=== PATIENT | female | born 1975 | race Caucasian/White ===

== ENCOUNTER 2016-07-03 23:18 | Emergency (ER) | payer BC ==
--- NOTE | 2016-07-04 00:13 | DIAGNOSTIC IMAGING REPORT ---
PROCEDURE: XR KNEE 4 VIEWS - LEFT INDICATION: TRAUMA/INJURY TECHNIQUE: Four views. COMPARISON: None. FINDINGS: Large laceration anterior to the patella with multiple small subcutaneous foreign bodies. No fracture or effusion. IMPRESSION: 1. Laceration anterior to the patella with multiple subcutaneous foreign bodies
--- NOTE | 2016-07-04 00:15 | DIAGNOSTIC IMAGING REPORT ---
PROCEDURE: XR ANKLE 3 OR 4 VIEWS - LEFT INDICATION: TRAUMA/INJURY TECHNIQUE: Four views. COMPARISON: None. FINDINGS: Curvilinear calcification lateral aspect of the calcaneus suggestive of an avulsion fracture. Normal ankle mortise. Soft tissue swelling laterally. IMPRESSION: 1. Avulsion fracture lateral aspect of the calcaneus
--- NOTE | 2016-07-04 01:55 | ED ORDER SUMMARY ---
..... Patient: CARLI ARDON OrderSheet [facility] VisitID: [id number] [place] [address] 40y, F Registration Date/Time: 07/03/2016 ORDER SHEET Weight: 83.0 kg Allergies: Sulfa Antibiotics GENERAL ORDERS: Ankle 3 or 4V Left Urgent (23:38 07/03/2016 Ana CARR) (0:00 RFay) Knee 4V Left Urgent (23:38 07/03/2016 Ana CARR) (0:00 RFay) Crutches (02:22 07/04/2016 Ramon Loyola verbal order read back to Ana CARR) (2:22 Ramon R.N.) MEDICATION ORDERS: Tdap IM 0.5 mL (per protocol) (23:39 07/03/2016 Ana CARR) (0:16 EBonham) Oxycodone-APAP PO 10/650 mg (NOW) (00:07 07/04/2016 Ana CARR) (Ack 0:17 EBonham) (Hold 2:22 Ramon Loyola) IV FLUIDS: ORDER SHEET NOTES: [Electronically signed by Kurt Agustin R.N. (02:07/04/2016)] [Electronically signed by Joshua Spivey MD (00:27 07/06/2016)] [Electronically locked/signed by Kurt Agustin R.N. (02:07/04/2016)]
--- NOTE | 2016-07-04 01:55 | ED NURSING NOTES ---
Clinical Report - Nurses [facility] [address] [place] [address] 07/03/2016 23:19 Patient: CARLI ARDON TRIAGE Triage time 2320. Acuity: LEVEL 3. Chief Complaint: INJURY TO RIGHT and LEFT KNEE and LEFT ANKLE. Alert. No acute distress. --23:29 Julita Brooke 23:25 07/03/16. BP: 118/84. HR: 102. RR: 16. O2 saturation: 97%. Temp: 98.2 F. Pain level now 0/10. --23:29 Julita Brooke. Weight: 83 kg. Height/Length: 70 inches. BMI: 26.3. --23:24 Julita Brooke. Medications None. --23:26 Julita Brooke. Allergies Sulfa Antibiotics. --23:26 Julita Brooke. History Arrived by EMS. Historian: EMS and patient. Accompanied by family. ( Pt fell after walking home from bar drinking heavy, rolled left ankle on curb, fell, hitting knees, denies head injuy). This occurred just prior to arrival. She sustained a laceration. Mechanism of injury: sustained a twisting injury and fell. She has had trouble walking. Treatment BUSINESS MGR: Ice. PAST MEDICAL HX: Tetanus status: unknown. SOCIAL HX: Light tobacco smoker (cigarette)- less than 1/2 a pack per day. Regular alcohol use. --23:29 Julita Brooke. Interventions To treatment room. --23:29 Julita Brooke. PHYSICAL ASSESSMENT To room via stretcher. GENERAL / NEURO / PSYCH: Oriented X 4. Alert. Appears in no acute distress. EXTREMITIES: Limited ROM present. Capillary refill is less than 2 seconds in the extremities. Extremity pulses are within normal limits. Pain with weight bearing. She was unable to bear weight. Neuro-vascular status intact to the extremity. Right knee: tenderness, erythema and multiple large and superficial abrasions. Left knee: tenderness and deep laceration greater than 5.0 cm with controlled bleeding. Left ankle: tenderness, swelling, erythema, ecchymosis and deformity. Limited ROM secondary to pain. SKIN: Skin intact. Skin is warm and dry. --23:31 Julita Brooke. NURSING PROGRESS NOTES Cold pack applied. Reassurance given. Call light placed in reach. Side rails up x 2. Bed placed in lowest position. Brakes of bed on. Patient ready for evaluation- chart flagged. --23:31 Julita Brooke 00:16 07/04/2016 TDAP IM 0.5 mL given. (Lot#: [id number], expiration date: 03/03/2018, Occupational Health Physician: sanofi pasteur). Given in the right deltoid. Allergies verified and confirmed 5 rights. Vaccine information statement provided to the patient. --00:16 Julita Brooke WOUND REPAIR: Wound repair performed by ED physician (Dr. Jamison). Assisted by one nurse. The wound is located on the left knee. Preparation: with 1% lidocaine. Wound cleansed per physician with sterile saline. Procedure: wound repaired with sutures (3 suture packs). Post-procedure: she was stable, no complications, bleeding controlled, neuro-vascular status intact distal to wound, dressing applied, splint applied and wound care instructions given. Total time of assist / procedure: 30 minutes. --01:48 Kurt Agustin R.N. 02:00. Stirrup air lower extremity splint applied to left ankle by nurse. Distal pulses intact, sensation intact and motor within normal limits. Immobilizer applied to the left knee by nurse; distal pulses intact, sensation intact and motor function within normal limits. Patient fit with new crutches. Crutch training performed by nurse; the patient demonstrated proper use. --02:22 Kurt Agustin R.N. 02:22 07/04/2016 TDAP IM Response: no adverse reaction. --02:22 Kurt Agustin R.N. DISPOSITION / DISCHARGE Departure time: 02:21. Condition at departure: stable. The goals identified in the patient's plan of care were met. No learning barriers present. Discharge instructions provided and reviewed with the patient. Reviewed medication(s) side effects, precautions, dosing and course information. Prescription(s) given to the patient (Carli verbalizes importance of finishing all prescribed antibiotics. She verbalizes importance of not driving and/or operating heavy machinery while taking narcotics. She verbalizes safe, proper use of prescribed narcotics for optimal pain management at home.). Activity restrictions (minimal use of injured extremity and rest) reviewed. Work note given. Patient verbalized understanding. Written instructions provided in Urdu. ( Carli verbalizes understanding of all d/c instructions including need to f/u with PCP for wound eval. She verbalizes importance of keep wound clean/dry and leaving splint in place. She verbalizes RICE care for knee and ankle. She has no questions and voices no concerns at this time.). The patient was discharged by the physician. She was discharged home and unaccompanied at time of discharge. She left the Emergency Department on crutches and via taxi. BRANDON COMA SCORE: [place] Coma Scale: 15- eyes open spontaneously (4); best verbal response- oriented x 4 (5); best motor response- obeys commands (6). --02:21 Kurt Agustin R.N. 02:19 07/04/16. BP: 115/69 (regular adult cuff) taken on the left arm, via an automated monitor, while sitting. HR: 92 (normal rate). RR: 16 (regular, unlabored and normal). O2 saturation: 100% on room air. Temp: deferred. Pain level now: 7/10. Additional comments: Does not want pain medicine. . --02:21 Kurt Agustin R.N. Locked/Released at 07/04/2016 2:23 by Kurt Agustin R.N.
--- NOTE | 2016-07-04 01:55 | ED CLINICAL REPORT ---
Clinical Report - Physicians/Mid Levels [facility] [address] [place] [address] 07/03/2016 23:19 Patient: CARLI ARDON Time Seen: 23:58 Jul 03 2016. Arrived- By ambulance. Historian- patient and EMS personnel. CPT: ER phys charges level 4 plus (#[id number]). 7.6-12.5 ch layer clsr-neck, hands (#[id number]). HISTORY OF PRESENT ILLNESS Chief Complaint: Injury to left knee. The injury happened just prior to arrival. ( patient was walking on the street after leaving a bar and fell hitting her knee on the pavement. Her ex-boyfriend called for medics to pick her up and bring her to the hospital.). Fell while standing and landed on a concrete surface; tripped. Patient is experiencing moderate pain. No other injury. REVIEW OF SYSTEMS The patient sustained a laceration. She complains of pain on weight bearing. She has had swelling. No tingling, weakness, numbness or suspected foreign body. All systems otherwise negative, except as recorded above. PAST HISTORY See nurses notes. Tetanus immunization status is unknown. Medications: None. Allergies: Sulfa Antibiotics. SOCIAL HISTORY Heavy tobacco smoker (cigarette)- less than 1 pack per day. Regular alcohol use. ADDITIONAL NOTES The nursing notes have been reviewed. PHYSICAL EXAM Vital Signs: 07/03/2016 23:25 BP: 118/84. HR: 102. RR: 16. O2 saturation: 97%. Temp: 98.2 F. Appearance: Alert. Appears to be in pain. Patient in mild distress. Head: Head atraumatic. Eyes: Eyes normal inspection. ENT: Pharynx normal. Neck: Normal inspection. Neck supple. C-spine non-tender. CVS: Normal heart rate and rhythm. Heart sounds normal. Pulses normal. Respiratory: No respiratory distress. Breath sounds normal. Chest nontender. Abdomen: Soft and nontender. Bowel sounds normal. Back: Normal inspection. ROM normal. Skin: Skin warm. Normal skin color. Extremities: Left knee: severe tenderness, mild swelling and deep laceration greater than 5.0 cm located in the infrapatellar area. SEE LACERATION PROCEDURE NOTE. Limited ROM secondary to pain. Neurovascular intact distally. No ligamentous laxity present. No joint effusion. No deformity. Left ankle: moderate tenderness and swelling, medium sized ecchymosis and mild deformity consistent with a lateral malleolus fracture localized to the lateral ligaments and malleolus. Limited ROM secondary to pain (diminished inversion and eversion). Neurovascular intact distally. No ligamentous laxity present. No joint effusion. Extremities otherwise negative. Neuro, Vascular and Tendons: Vascular status intact. Sensation intact. Motor intact. Gait: Limping gait. Neuro: Oriented X 3. No motor deficit. No sensory deficit. Reflexes normal. LABS, X-RAYS, AND EKG Lt Knee X-ray: No fracture. Normal alignment. (no fx, minimal effusion, sub q gravel multiple FB with large laceration). Views: AP, lateral and oblique. Technique: good. The X-rays were independently viewed by me and interpreted contemporaneously by me. Lt Ankle X-ray: (no apparent fx. Soft tissue calcific strand on one view only(oblique) Question avulsion vs other.). Views: 3 view ankle series. Technique: good. The X-rays were independently viewed by me and interpreted contemporaneously by me. PROGRESS AND PROCEDURES Laceration Repair: Location: left knee. Length: 12.7 cm. Complexity: intermediate (single layer closure with heavy contamination and requiring extensive irrigation and cleaning). Wound depth/shape- linear and flap-like. Contamination present. Contused tissue present. Distal neuro/vascular/tendon status normal. Anesthesia provided using 0.50% Marcaine. Prepped with Hibiclens. Wound prep- [place] drain placed. Wound explored, cleansed, irrigated and examined to the base in bloodless field extensively with normal saline. Debrided. Foreign material removed. Closure of skin: interrupted 4-0 (15 sutures). Post-procedure: she is stable and there are no complications. Bleeding is controlled and neuro-vascular status is intact distal to the wound. Dressing applied. Tetanus immunization given. Estimated blood loss: 2 mL. Splint Application: Knee immobilizer and air splint applied to left ankle and knee. Splint applied by nurse with direct supervision by me. Reassessed extremity following splint application. Neurovascular intact. Follow-up recommended within 2 weeks. Fitted for crutches by the tech. Course of Care: percocet 2 po Patient is stable. X-ray diagnosis of left ankle not clear on discharge. Radiologist read ankle as positive for a small avulsion fracture of the calcaneus. The patient was notified by nursing staff by phone. Treament is the same other than no weight bearing until released. Patient/family counseled. Disposition: Discharged. Condition: stable and improved. CLINICAL IMPRESSION Single deep laceration to the left knee. Complicated repair. No foreign body present. Sprain of the talofibular ligament of the left ankle. Fall on same level by tripping. Single contusion to the left knee. Small avulsion fracture of the left calcaneus. INSTRUCTIONS Apply ice for 15-20 minutes three times a day for one days. Use crutches as needed. Wear knee immobilizer until released. Wear air splint until better. Protect wound and keep wound area clean. (Have drain removed in 3 days.). Change dressing twice daily. Keep wounds dry. You may wash wounds briefly, then dry. Apply neosporin twice daily. Sutures should be removed in fourteen days. Elevate affected areas above chest level. You may walk and bear weight as tolerated. Warnings: TETANUS: You were given a tetanus shot during your visit. Make a note for future reference. GENERAL WARNINGS: Return or contact your physician immediately if your condition worsens or changes unexpectedly, if not improving as expected, or if other problems arise. Prescription Medications: Hydrocodone/APAP 5mg/325mg: take 1 to 2 orally every 6 hours as needed for pain. Dispense fifteen (15). No refills. Augmentin 875 mg: take 1 tablet orally every 12 hours for 7 days. Dispense fourteen (14). No refills. Substitution is permissible. Follow-up: Follow up with your doctor in three days. Call for an appointment. Understanding of the discharge instructions verbalized by patient. (Electronically signed by Joshua Spivey MD 07/06/2016 0:27)
--- NOTE | 2016-07-04 01:55 | ED NURSING NOTES ---
Clinical Report - Nurses [facility] [address] [place] [address] 07/03/2016 23:19 Patient: CARLI ARDON TRIAGE Triage time 2320. Acuity: LEVEL 3. Chief Complaint: INJURY TO RIGHT and LEFT KNEE and LEFT ANKLE. Alert. No acute distress. --23:29 Julita Brooke 23:25 07/03/16. BP: 118/84. HR: 102. RR: 16. O2 saturation: 97%. Temp: 98.2 F. Pain level now 0/10. --23:29 Julita Brooke. Weight: 83 kg. Height/Length: 70 inches. BMI: 26.3. --23:24 Julita Brooke. Medications None. --23:26 Julita Brooke. Allergies Sulfa Antibiotics. --23:26 Julita Brooke. History Arrived by EMS. Historian: EMS and patient. Accompanied by family. ( Pt fell after walking home from bar drinking heavy, rolled left ankle on curb, fell, hitting knees, denies head injuy). This occurred just prior to arrival. She sustained a laceration. Mechanism of injury: sustained a twisting injury and fell. She has had trouble walking. Treatment BEEF CATTLE GRAZIER: Ice. PAST MEDICAL HX: Tetanus status: unknown. SOCIAL HX: Light tobacco smoker (cigarette)- less than 1/2 a pack per day. Regular alcohol use. --23:29 Julita Brooke. Interventions To treatment room. --23:29 Julita Brooke. PHYSICAL ASSESSMENT To room via stretcher. GENERAL / NEURO / PSYCH: Oriented X 4. Alert. Appears in no acute distress. EXTREMITIES: Limited ROM present. Capillary refill is less than 2 seconds in the extremities. Extremity pulses are within normal limits. Pain with weight bearing. She was unable to bear weight. Neuro-vascular status intact to the extremity. Right knee: tenderness, erythema and multiple large and superficial abrasions. Left knee: tenderness and deep laceration greater than 5.0 cm with controlled bleeding. Left ankle: tenderness, swelling, erythema, ecchymosis and deformity. Limited ROM secondary to pain. SKIN: Skin intact. Skin is warm and dry. --23:31 Julita Brooke. NURSING PROGRESS NOTES Cold pack applied. Reassurance given. Call light placed in reach. Side rails up x 2. Bed placed in lowest position. Brakes of bed on. Patient ready for evaluation- chart flagged. --23:31 Julita Brooke 00:16 07/04/2016 TDAP IM 0.5 mL given. (Lot#: [id number], expiration date: 03/03/2018, Sales Donor Recruitment Representative: sanofi pasteur). Given in the right deltoid. Allergies verified and confirmed 5 rights. Vaccine information statement provided to the patient. --00:16 Julita Brooke WOUND REPAIR: Wound repair performed by ED physician (Dr. Jamison). Assisted by one nurse. The wound is located on the left knee. Preparation: with 1% lidocaine. Wound cleansed per physician with sterile saline. Procedure: wound repaired with sutures (3 suture packs). Post-procedure: she was stable, no complications, bleeding controlled, neuro-vascular status intact distal to wound, dressing applied, splint applied and wound care instructions given. Total time of assist / procedure: 30 minutes. --01:48 Kurt Agustin R.N. 02:00. Stirrup air lower extremity splint applied to left ankle by nurse. Distal pulses intact, sensation intact and motor within normal limits. Immobilizer applied to the left knee by nurse; distal pulses intact, sensation intact and motor function within normal limits. Patient fit with new crutches. Crutch training performed by nurse; the patient demonstrated proper use. --02:22 Kurt Agustin R.N. 02:22 07/04/2016 TDAP IM Response: no adverse reaction. --02:22 Kurt Agustin R.N. DISPOSITION / DISCHARGE Departure time: 02:21. Condition at departure: stable. The goals identified in the patient's plan of care were met. No learning barriers present. Discharge instructions provided and reviewed with the patient. Reviewed medication(s) side effects, precautions, dosing and course information. Prescription(s) given to the patient (Carli verbalizes importance of finishing all prescribed antibiotics. She verbalizes importance of not driving and/or operating heavy machinery while taking narcotics. She verbalizes safe, proper use of prescribed narcotics for optimal pain management at home.). Activity restrictions (minimal use of injured extremity and rest) reviewed. Work note given. Patient verbalized understanding. Written instructions provided in Arabic. ( Carli verbalizes understanding of all d/c instructions including need to f/u with PCP for wound eval. She verbalizes importance of keep wound clean/dry and leaving splint in place. She verbalizes RICE care for knee and ankle. She has no questions and voices no concerns at this time.). The patient was discharged by the physician. She was discharged home and unaccompanied at time of discharge. She left the Emergency Department on crutches and via taxi. BRANDON COMA SCORE: [place] Coma Scale: 15- eyes open spontaneously (4); best verbal response- oriented x 4 (5); best motor response- obeys commands (6). --02:21 Kurt Agustin R.N. 02:19 07/04/16. BP: 115/69 (regular adult cuff) taken on the left arm, via an automated monitor, while sitting. HR: 92 (normal rate). RR: 16 (regular, unlabored and normal). O2 saturation: 100% on room air. Temp: deferred. Pain level now: 7/10. Additional comments: Does not want pain medicine. . --02:21 Kurt Agustin R.N. Locked/Released at 07/04/2016 2:23 by Kurt Agustin R.N.
--- NOTE | 2016-07-04 01:55 | ED ORDER SUMMARY ---
..... Patient: CARLI ARDON OrderSheet [facility] VisitID: [id number] [place] [address] 40y, F Registration Date/Time: 07/03/2016 ORDER SHEET Weight: 83.0 kg Allergies: Sulfa Antibiotics GENERAL ORDERS: Ankle 3 or 4V Left Urgent (23:38 07/03/2016 Ana CARR) (0:00 RFay) Knee 4V Left Urgent (23:38 07/03/2016 Ana CARR) (0:00 RFay) Crutches (02:22 07/04/2016 Ramon Loyola verbal order read back to Ana CARR) (2:22 Ramon R.N.) MEDICATION ORDERS: Tdap IM 0.5 mL (per protocol) (23:39 07/03/2016 Ana CARR) (0:16 EBonham) Oxycodone-APAP PO 10/650 mg (NOW) (00:07 07/04/2016 Ana CARR) (Ack 0:17 EBonham) (Hold 2:22 Ramon Loyola) IV FLUIDS: ORDER SHEET NOTES: [Electronically signed by Kurt Agustin R.N. (02:07/04/2016)] [Electronically signed by Joshua Spivey MD (00:27 07/06/2016)] [Electronically locked/signed by Kurt Agustin R.N. (02:07/04/2016)]
--- NOTE | 2016-07-06 00:27 | ED DISCHARGE INSTRUCTIONS ---
Patient: CARLI ARDON General Instructions [facility] VisitID: [id number] [place] [address] 40y, F Registration Date/Time: 07/03/2016 Single deep laceration to the left knee. Complicated repair. No foreign body present. Sprain of the talofibular ligament of the left ankle. Fall on same level by tripping. Single contusion to the left knee. Small avulsion fracture of the left calcaneus. INSTRUCTIONS Apply ice for 15-20 minutes three times a day for one days. Use crutches as needed. Wear knee immobilizer until released. Wear air splint until better. Protect wound and keep wound area clean. (Have drain removed in 3 days.). Change dressing twice daily. Keep wounds dry. You may wash wounds briefly, then dry. Apply neosporin twice daily. Sutures should be removed in fourteen days. Elevate affected areas above chest level. You may walk and bear weight as tolerated. Warnings: TETANUS: You were given a tetanus shot during your visit. Make a note for future reference. GENERAL WARNINGS: Return or contact your physician immediately if your condition worsens or changes unexpectedly, if not improving as expected, or if other problems arise. Prescription Medications: Hydrocodone/APAP 5mg/325mg: take 1 to 2 orally every 6 hours as needed for pain. Dispense fifteen (15). No refills. Augmentin 875 mg: take 1 tablet orally every 12 hours for 7 days. Dispense fourteen (14). No refills. Substitution is permissible. Follow-up: Follow up with your doctor in three days. Call for an appointment. Understanding of the discharge instructions verbalized by patient. ADDITIONAL INFORMATION Mechanical Fall You have had a fall today. It appears that the cause is mechanical. That means that you slipped, tripped or lost your balance. If your fall had been due to fainting or a seizure, further tests would be required. Home Care: Rest today and resume your normal activities when you are feeling back to normal. If you were injured during the fall, follow the advice from your doctor regarding care of your injury. You may use acetaminophen (Tylenol) or ibuprofen (Motrin, Advil) to control pain, unless another pain medicine was prescribed. [NOTE: If you have chronic liver or kidney disease or ever had a stomach ulcer or GI bleeding, talk with your doctor before using these medicines.] Fall Prevention: Was there anything that caused your fall that can be fixed, removed, or replaced? Make your home safe by keeping walkways clear of objects you may trip over. Use non-slip pads under rugs. Do not walk in poorly lit areas. Do not stand on chairs or wobbly ladders. Use caution when reaching overhead or looking upward. This position can cause a loss of balance. Be sure your shoes fit properly, have non-slip bottoms and are in good condition. Be cautious when going up and down curbs, and walking on uneven sidewalks. If your balance is poor, consider using a cane or walker. Stay as active as you can. Balance, flexibility, strength, and endurance all come from exercise. They all play a role in preventing falls. Follow Up with your doctor or as advised by our staff. Get Prompt Medical Attention if any of the following occur: Repeated mechanical falls, or unexplained falls Dizziness, fainting or seizure Severe headache Chest pain or shortness of breath Palpitations (very rapid or very slow or irregular heartbeat) Blood in vomit, stools (black or red color) Weakness of an arm or leg or one side of the face Difficulty with speech or vision Laceration (All Closures) Alaceration is a cut through the skin. This will usually require stitches (sutures) or jane if it is deep. Minor cuts may be treated with a surgical tape closure orskin glue. Home care The following guidelines will help you care for your laceration at home: Extremity, face, or trunk wounds Keep the wound clean and dry. If a bandage was applied and it becomes wet or dirty, replace it. Otherwise, leave it in place for the first 24 hours. If stitches or jane were used, clean the wound daily. After removing the bandage, wash the area with soap and water. Use a wet cotton swab to loosen and remove any blood or crust that forms. The doctor may prescribe an antibiotic cream or ointment to prevent infection. Do not stop taking this medication until you have finished the prescribed course or the doctor tells you to stop. The doctor may also prescribe medications for pain. Follow the doctors instructions for taking these medications. You may remove the bandage to shower as usual after the first 24 hours, but do not soak the area in water (no swimming) until the stitches or jane are removed. If surgical tape was used, keep the area clean and dry. If it becomes wet, blot it dry with a towel. If skin glue was used, do not scratch, rub, or pick at the adhesive film. Do not place tape directly over the film. Do not apply liquid, ointment, or creams to the wound while the film is in place. Do not clean the wound with peroxide and do not apply ointments. Avoid activities that cause heavy sweating until the film has fallen off. Protect the wound from prolonged exposure to sunlight or tanning lamps. You may shower as usual but do not soak the wound in water (no baths or swimming). The film will fall off by itself in 510 days. Scalp wounds During the first two days, you may carefully rinse your hair in the shower to remove blood, glass or dirt particles. After two days, you may shower and shampoo your hair normally. Do not soak your scalp in the tub or go swimming until the stitches or jane have been removed. Talk with your doctor before applying any antibiotic ointment to the wound. Mouth wounds Eat soft foods to reduce pain. If the cut is inside of your mouth, clean by rinsing after each meal and at bedtime with a mixture of equal parts water and hydrogen peroxide (do not swallow!). Or, you can use a cotton swab to directly apply hydrogen peroxide onto the cut. Mouth wounds can be painful when eating. You may use an [id number] local numbing solution for pain relief. If this is not available, you may use any numbing solution for teething babies. You may apply this directly to the sores with a cotton-tip swab or with your finger. Follow-up care Follow up with your health care provider. Most skin wounds heal within ten days. Mouth and facial wounds heal within five days. However, even with proper treatment, a wound infection may sometimes occur. Therefore, you should check the wound daily for signs of infection listed below. Stitches should be removed from the face within five days; stitches and jane should be removed from other parts of the body within 714 days. If dissolving stitches were used in the mouth, these will fall out or dissolve without the need for removal. If tape closures were used, remove them yourself if they have not fallen off after 7 days. Ifskin glue was used, the film will fall off by itself in 510 days. When to seek medical care Get prompt medical attention if any of these occur: Bleeding not controlled by direct pressure Signs of infection, including increasing pain in the wound, increasing wound redness or swelling, or pus coming from the wound Fever of 100.4F (38C) or higher, or as directed by your health care provider Stitches or jane come apart or fall out or surgical tape falls off before 7 days Wound edges re-open Laceration, Extremity (Sutures, Jane, Or Tape) A laceration is a cut through the skin. This will usually require stitches (sutures) or jane if it is deep. Minor cuts may be treated with surgical tape closures. Home care The following guidelines will help you care for your laceration at home: Keep the wound clean and dry. If a bandage was applied and it becomes wet or dirty, replace it. Otherwise, leave it in place for the first 24 hours, then change it once a day or as directed. If stitches or jane were used, clean the wound daily: After removing the bandage, wash the area with soap and water. Use a wet cotton swab to loosen and remove any blood or crust that forms. After cleaning, keep the wound clean and dry. Talk with your doctor before applying any antibiotic ointment to the wound. Reapply the bandage. You may remove the bandage to shower as usual after the first 24 hours, but do not soak the area in water (no swimming) until the stitches or jane are removed. If surgical tape closures were used, keep the area clean and dry. If it becomes wet, blot it dry with a towel. The doctor may prescribe an antibiotic cream or ointment to prevent infection. Do not stop taking this medication until you have finished the prescribed course or the doctor tells you to stop. The doctor may also prescribe medications for pain. Follow the doctors instructions for taking these medications. If you have chronic liver or kidney disease or ever had a stomach ulcer or GI bleeding, talk with your doctor before using these medicines. Follow-up care Follow up with your health care provider. Most skin wounds heal within ten days. However, an infection may sometimes occur despite proper treatment. Therefore, check the wound daily for the signs of infection listed below. Stitches and jane should be removed within 714 days. If surgical tape closures were used, you may remove them after 10 days, if they have not fallen off by then. Notify your doctor if you notice persistent numbness or weakness in the injured extremity. (Note:A radiologist will review any X-rays that were taken. We will notify you of any new findings that may affect your care.) When to seek medical care Get prompt medical attention if any of these occur: Increasing pain in the wound Redness, swelling, or pus coming from the wound Fever of 100.4F (38C) or higher, or as directed by your health care provider If stitches or jane come apart or fall out before your next appointment If the surgical tape closures fall off within seven days, or the wound edges re-open Bleeding not controlled by direct pressure Sprain, Ankle,With X-Ray A sprain is an injury to the ligaments or capsule that holds a joint together. There are no broken bones. Most sprains take from four to six weeks to heal. If the ligament is completely torn (severe sprain), it can take several months to recover. Mild to moderate sprains may be treated with an elastic wrap or an in-shoe splint to provide support and prevent re-injury. A mild sprain may not require any additional support. A severe sprain may require surgery to repair. Home care The following guidelines will help you care for your injury at home: Stay off the injured leg as much as possible until you can walk on it without pain. If you have a lot of pain with walking, crutches or a walker may be prescribed. (These can be rented or purchased at many pharmacies and surgical or orthopedic supply stores). Follow your doctor's advice regarding when to begin bearing weight on that leg. Keep your leg elevated to reduce pain and swelling. When sleeping, place a pillow under the injured leg. When sitting, support the injured leg so it is level with your waist. This is very important during the first 48 hours. Apply an ice pack (ice cubes in a plastic bag, wrapped in a towel) over the injured area for 20 minutes every 12 hours the first day. You can place the ice pack directly over the splint/cast. If you were given a boot, open it to apply the ice pack. Continue with ice packs 34 times a day for the next two days, then as needed for the relief of pain and swelling. You may use acetaminophen or ibuprofen to control pain, unless another pain medicine was prescribed. If you have chronic liver or kidney disease or ever had a stomach ulcer or GI bleeding, talk with your doctor before using these medicines. You may return to sports after healing, when you can run without pain. A sprained ankle is at risk for re-injury during the first six weeks. During that time, protect your ankle with an in-shoe splint that prevents tilting of your ankle from side to side. This is very important if you do active work or play sports during that time. Follow-up care Any X-rays you had today dont show any broken bones, breaks, or fractures. Sometimes fractures dont show up on the first X-ray. Bruises and sprains can sometimes hurt as much as a fracture. These injuries can take time to heal completely. If your symptoms dont improve or they get worse, talk with your doctor. You may need a repeat X-ray. When to seek medical care Get prompt medical attention if any of the following occur: The plaster cast or splint gets wet or soft The fiberglass cast or splint gets wet and does not dry for 24 hours Pain or swelling increases, or redness appears Toes become cold, blue, numb or tingly Re-injure your ankle Contusion:Lower Extremity You have a CONTUSION of your LOWER extremity (leg, knee, ankle, foot, or toes). This causes local pain, swelling and sometimes bruising. There are no broken bones. This injury may take from a few days to a few weeks to heal. Home Care: 1) Keep your leg elevated to reduce pain and swelling. When sleeping, place a pillow under the injured leg. When sitting, support the injured leg so it is level with your waist. This is very important during the first 48 hours. 2) If CRUTCHES have been advised, do not bear full weight on the injured leg until you can do so without pain. You may return to sports when you are able to hop and run on the injured leg without pain. 3) Apply an ice pack (ice cubes in a plastic bag, wrapped in a towel) over the injured area for 20 minutes every 1-2 hours the first day for pain relief. Continue this 3-4 times a day until the pain and swelling goes away. 4) You may use acetaminophen (Tylenol) or ibuprofen (Motrin, Advil) to control pain, unless another pain medicine was prescribed. [ NOTE : If you have chronic liver or kidney disease or ever had a stomach ulcer or GI bleeding, talk with your doctor before using these medicines.] Follow Up with your doctor or this facility if you are not starting to improve within the next THREE days. [NOTE: If X-rays were taken, they will be reviewed by a radiologist. You will be notified of any new findings that may affect your care.] Get Prompt Medical Attention if any of the following occur: -- Pain or swelling increases -- Toes become cold, blue, numb or tingly -- Redness, warmth or drainage from the skin Crutch Walking Crutch Adjustment Make sure the crutches you use are adjusted to fit you. When you stand, there should be room to fit 2-3 fingers between the top of the crutch and your armpit. Your elbow should be slightly bent when holding the hand obstetrics and gynecology professor. Crutch Walking: Place the crutches forward 12" in front of and 6" to the side of your feet. Lean your weight forward as you push down on the handgrips. Your weight should be on your hands and yourstrong leg, not your armpits . Let your body swing through, landing on the strong leg. Advance the crutches forward again. The crutch and the injured leg should move together. Going Up Steps: ("Up with the good") With both crutches on the same step as your feet, push down on the handgrips. Balancing with very light pressure on the weak leg, let your hands support your weight as you raise your strong leg onto the next higher step. Transfer all your weight to your strong leg (still bent) as you move the crutches up to the next step alongside the strong leg. With your weight evenly balanced on the two crutches and your strong leg, straighten your strong knee as you raise the weak leg up to the next step. Going Down Steps: ("Down with the bad") With both crutches on the same step as your feet, push down on the handgrips. With your weight evenly balanced on the two crutches and your strong leg, bend your strong knee as you lower the weak leg down to the next step. Let your strong leg support you (still bent) as you move the crutches down alongside the weak leg. Transfer your weight to your hands, balancing with very light pressure on the weak leg as you lower your strong leg alongside your weak leg. Knee Immobilizer A KNEE IMMOBILIZER is used to provide support and limit movement of the knee. This will make you more comfortable as your injury heals. Home Use: 1) Unless told otherwise, the knee brace should be worn whenever you are out of bed. You may wear it in bed while asleep for the first few nights or until the pain starts to go away. Otherwise, remove the brace at night to avoid muscle stiffness from lack of joint movement. 2) You can open the velcro brace to dress, bathe and apply ice packs as directed. Get Prompt Medical Attention if any of the following occur: -- Worsening pain in the knee -- Weakness or numbness or tingling in the foot -- Increased swelling, redness or warmth of the knee joint Aircast Traditional splints and casts for the foot and ankle protect the injury by preventing movement at the joints. However, many injuries heal better and faster if the injured joint can be moved, while protected at the same time. This is the reason for using an Aircast. There are two common type of AirCasts: 1) Air-Stirrup ankle splint This is often used to treat ankle sprains. It contains padded air cells in a plastic frame that fits into your shoe. This allows you to walk while preventing the ankle joint from rolling in or out causing re-injury. Ankle sprains can take 4-6 weeks to heal. Persons with severe injuries or over age 60 may require more time to heal. During that time, you are prone to re-injury by suddenly twisting your ankle again while the ligaments are still weak. When treating a sprain, the Air-Stirrup splint should be worn whenever walking for at least four weeks, or as long as you continue to have ankle pain. You should continue to wear it at least 6 weeks whenever running, playing sports or any activity where there is increased risk of re-injury. Talk to your doctor for specific advice about the treatment of your condition. 2) SP-Walker boot This is a short boot that provides support and protection to the foot and ankle while allowing you to walk. It contains padded air cells that provide compression and help circulation. It is used for both foot and ankle injuries - both sprains and minor fractures. Talk to your doctor for specific advice about the treatment of your condition. Air-Stirrup and SP-Walker are trademarks of [employer]. For more information about their products, see www.[employer]. Laceration, Extremity (Sutures, [place], Or Tape) A laceration is a cut through the skin. This will usually require stitches (sutures) or jane if it is deep. Minor cuts may be treated with surgical tape closures. Home care The following guidelines will help you care for your laceration at home: Keep the wound clean and dry. If a bandage was applied and it becomes wet or dirty, replace it. Otherwise, leave it in place for the first 24 hours, then change it once a day or as directed. If stitches or jane were used, clean the wound daily: After removing the bandage, wash the area with soap and water. Use a wet cotton swab to loosen and remove any blood or crust that forms. After cleaning, keep the wound clean and dry. Talk with your doctor before applying any antibiotic ointment to the wound. Reapply the bandage. You may remove the bandage to shower as usual after the first 24 hours, but do not soak the area in water (no swimming) until the stitches or jane are removed. If surgical tape closures were used, keep the area clean and dry. If it becomes wet, blot it dry with a towel. The doctor may prescribe an antibiotic cream or ointment to prevent infection. Do not stop taking this medication until you have finished the prescribed course or the doctor tells you to stop. The doctor may also prescribe medications for pain. Follow the doctors instructions for taking these medications. If you have chronic liver or kidney disease or ever had a stomach ulcer or GI bleeding, talk with your doctor before using these medicines. Follow-up care Follow up with your health care provider. Most skin wounds heal within ten days. However, an infection may sometimes occur despite proper treatment. Therefore, check the wound daily for the signs of infection listed below. Stitches and jane should be removed within 714 days. If surgical tape closures were used, you may remove them after 10 days, if they have not fallen off by then. Notify your doctor if you notice persistent numbness or weakness in the injured extremity. (Note:A radiologist will review any X-rays that were taken. We will notify you of any new findings that may affect your care.) When to seek medical care Get prompt medical attention if any of these occur: Increasing pain in the wound Redness, swelling, or pus coming from the wound Fever of 100.4F (38C) or higher, or as directed by your health care provider If stitches or jane come apart or fall out before your next appointment If the surgical tape closures fall off within seven days, or the wound edges re-open Bleeding not controlled by direct pressure You have been given the following additional information: Fall, Mechanical Laceration, All Laceration, Extrem (Suture, Staple, Or Tape) Sprain, Ankle, With X-Ray Contusion, Lower Extremity Crutch Walking Knee Immobilizer Aircast Splint And Boot Laceration, Extrem (Suture, Staple, Or Tape) You may walk and bear weight as tolerated. (Electronically signed by Joshua Spivey MD 07/06/2016 0:27)
--- NOTE | 2016-07-06 00:28 | ED MAR SUMMARY ---
..... Medication Administration Record [facility] [address] [place] [address] Patient: CARLI ARDON Visit ID: [id number] 40y, F Weight: 83.0 kg Height/Length: 70 in BMI: 26.3 ALLERGIES: Sulfa Antibiotics Given 00:16 07/04/2016 Julita Brooke, Medication Administered: TDAP [IM], Dose: 0.5 mL IM. Medication Ordered: Tdap IM 0.5 mL (per protocol).
--- NOTE | 2016-07-06 00:28 | ED MED RECONCILIATION SUMMARY ---
Patient: CARLI ARDON Medication Reconciliation Report [facility] VisitID: [id number] [address] [place] [address] 40y, F Registration Date/Time: 07/03/2016 Weight: 83.0 kg Height/Length: 70 in. BMI: 26.3 ALLERGIES: Sulfa Antibiotics The patient's Home Medications are listed below: NONE. The source(s) of the original Home Medication information: Not obtained. The following Medications were given to the patient in the Emergency Department: TDAP [IM] IM 0.5 mL, administered: 07/04/2016 12:16:00 AM The following Medications were prescribed to the patient: Hydrocodone/APAP 5mg/325mg: take 1 to 2 orally every 6 hours as needed for pain. Dispense fifteen (15). No refills. -- Joshua Spivey MD Augmentin 875 mg: take 1 tablet orally every 12 hours for 7 days. Dispense fourteen (14). No refills. Substitution is permissible. -- Joshua Spivey MD
--- NOTE | 2016-07-06 00:28 | ED MED RECONCILIATION SUMMARY ---
Patient: CARLI ARDON Medication Reconciliation Report [facility] VisitID: [id number] [address] [place] [address] 40y, F Registration Date/Time: 07/03/2016 Weight: 83.0 kg Height/Length: 70 in. BMI: 26.3 ALLERGIES: Sulfa Antibiotics The patient's Home Medications are listed below: NONE. The source(s) of the original Home Medication information: Not obtained. The following Medications were given to the patient in the Emergency Department: TDAP [IM] IM 0.5 mL, administered: 07/04/2016 12:16:00 AM The following Medications were prescribed to the patient: Hydrocodone/APAP 5mg/325mg: take 1 to 2 orally every 6 hours as needed for pain. Dispense fifteen (15). No refills. -- Joshua Spivey MD Augmentin 875 mg: take 1 tablet orally every 12 hours for 7 days. Dispense fourteen (14). No refills. Substitution is permissible. -- Joshua Spivey MD
--- NOTE | 2016-07-06 00:28 | ED MAR SUMMARY ---
..... Medication Administration Record [facility] [address] [place] [address] Patient: CARLI ARDON Visit ID: [id number] 40y, F Weight: 83.0 kg Height/Length: 70 in BMI: 26.3 ALLERGIES: Sulfa Antibiotics Given 00:16 07/04/2016 Julita Brooke, Medication Administered: TDAP [IM], Dose: 0.5 mL IM. Medication Ordered: Tdap IM 0.5 mL (per protocol).
== END 2016-07-04 02:23 | disposition home or self-care (01) ==
LOC: ED SRH 23:18
DX: S81.012A Laceration without foreign body, left knee, initial encounter (principal); S92.002A Unspecified fracture of left calcaneus, initial encounter for closed fracture; S93.492A Sprain of other ligament of left ankle, initial encounter; W01.198A Fall on same level from slipping, tripping and stumbling with subsequent striking against other object, initial encounter; Y93.01 Activity, walking, marching and hiking; Y92.410 Unspecified street and highway as the place of occurrence of the external cause; Y99.9 Unspecified external cause status; Z88.2 Allergy status to sulfonamides